=== PATIENT | male | born 1940 | race African-American/Black ===

== ENCOUNTER 2021-01-19 08:46 | Emergency (ER) | payer MEDICARE, OTHER, SELFPAY ==
[2021-01-19] VITALS (7 sets, daily range): BP systolic 138–185; BP diastolic 71–88; PULSE 73–116; RESP 14–28; TEMP 36.6; O2SAT 94–98; BMI 31.9
--- NOTE | 2021-01-19 09:04 | DI.RAD.S_ITS ---
PROCEDURE: XR CHEST 2V INDICATIONS: shortness of breath TECHNIQUE: 2 views of the chest were acquired. COMPARISON: None. FINDINGS: Surgical changes and devices: None. Lungs and pleura: Lungs are mildly edematous. Slight subpulmonic pleural effusions and no pneumothorax. Mediastinum: Mediastinal contours are normal. Heart size is at the upper limits of normal. Bones and chest wall: No suspicious bony abnormalities. Soft tissues appear unremarkable. IMPRESSION: Mild pulmonary edema pattern, slight pleural effusions beneath the lungs bilaterally. Dictated by: Jm Monroy M.D. on 01/19/2021 at 10:05 Approved by: Jm Monroy M.D. on 01/19/2021 at 10:06
--- NOTE | 2021-01-19 09:16 | ED.SOB ---
HPI - SOB/Dyspnea General Chief Complaint: Shortness of Breath/Dyspnea Stated Complaint: asthma is wearing him down Time Seen by Provider: 01/19/21 09:00 History of Present Illness HPI Narrative: Patient is a 80-year-old male with history of asthma presenting with increasing shortness of breath. Weeks ago had extreme hot weather he said it started then but has progressively gotten worse. He has been taking his Symbicort and albuterol but does not seem to be helping. He has a nonproductive cough and feels like his chest is tight. He does not have severe chest pain. He has no fever or chills. He denies any orthopnea or lower extremity edema. Related Data Home Medications Medication Instructions Recorded Confirmed [COD LIVER OIL] PO QDAY #0 07/03/10 albuterol sulfate 90 mcg/actuation 2 puff INH QIDP PRN #0 07/03/10 aerosol inhaler (Ventolin HFA) finasteride 5 mg tablet 5 mg PO QDAY #0 07/03/10 terazosin 5 mg capsule 5 mg PO BID #0 07/03/10 [GLUCOSAMINE/CHONTROI] PO QDAY #0 09/09/17 [TUSSIN DM] #0 09/09/17 [YOUTHEORY COLLAGEN] PO QDAY #0 09/09/17 albuterol sulfate 0.63 mg/3 mL INH PRN #0 09/09/17 solution for nebulization aspirin 81 mg tablet,delayed 81 mg PO QDAY #0 09/09/17 01/19/21 release budesonide-formoterol HFA 160 2 puff INH BID #0 09/09/17 mcg-4.5 mcg/actuation aerosol inhaler (Symbicort) doxycycline hyclate 100 mg tablet 100 mg PO #0 09/09/17 fluticasone propionate 50 2 spray INTRANASAL QDAY #0 09/09/17 mcg/actuation nasal spray,suspension (Flonase Allergy Relief) ibuprofen 800 mg tablet 800 mg PO TIDP PRN #0 09/09/17 ipratropium 0.5 mg-albuterol 3 mg 3 ml INH QID #0 09/09/17 (2.5 mg base)/3 mL nebulization soln ipratropium 20 mcg-albuterol 100 1 puff INH QID #0 09/09/17 mcg/actuation mist for inhalation (Combivent Respimat) montelukast 10 mg tablet 10 mg PO QDAY #0 09/09/17 omeprazole 20 mg tablet,delayed 20 mg PO QDAY #0 09/09/17 release prednisone 20 mg tablet 20 mg PO QDAY #0 09/09/17 Previous Rx's Medication Instructions Recorded albuterol sulfate 0.63 mg/3 mL 0.63 mg INHALATION QID PRN #75 ml 01/19/21 solution for nebulization albuterol sulfate 90 mcg/actuation 2 puff INHALATION Q4-6H PRN #8.5 01/19/21 aerosol inhaler gram prednisone 10 mg tablet 10 mg PO DAILY #30 tab 01/19/21 Allergies Allergy/AdvReac Type Severity Reaction Status Date / Time Penicillins [PENICILLINS] Allergy Unknown Verified 01/19/21 09:22 Sulfa (Sulfonamide Allergy Unknown Verified 01/19/21 09:22 Antibiotics) [SULFA (SULFONAMIDE ANTIBIOTICS)] Review of Systems Review of Systems Narrative: GENERAL: Denies chills, fatigue, malaise, fever, sweats, travel HEENT: Denies sinus pain, ear pain, sore throat, difficulty swallowing, neck pain RESPIRATORY: See HPI CARDIOVASCULAR: Denies chest pain, palpitations, orthopnea, edema GASTROINTESTINAL: Denies nausea, vomiting, abdominal pain, diarrhea, constipation, melena. : Denies dysuria, frequency, incontinence, hematuria, urinary retention, flank pain. MUSCULOSKELETAL: Denies weakness, joint pain, or bony pain SKIN: No rash, no erythema, no pruritus NEUROLOGIC: Denies weakness, dizziness, headache, numbness, change in speech, confusion PSYCHIATRIC: No concerning psychosocial issues. 12 point review of systems is negative except for those stated above and HPI Patient History Social History Smoking Status: Former smoker Exam Initial Vital Signs Initial Vital Signs: Vital Signs Temperature 97.9 F 01/19/21 09:00 Pulse Rate 73 01/19/21 09:00 Respiratory Rate 24 01/19/21 09:00 Blood Pressure 185/88 H 01/19/21 09:00 Pulse Oximetry 94 01/19/21 09:00 GENERAL: Well-appearing alert 80-year-old male HEENT: Head atraumatic,EOMI, pupils reactive, face symmetric, no JVD CARDIOVASCULAR: Regular rate and rhythm without murmurs, rubs or gallops. RESPIRATORY: Wheezing bilaterally no respiratory distress speaks in full sentences ABDOMEN: Soft, nontender. Normoactive bowel sounds all 4 quadrants. No guarding or rebound. EXTREMITIES: Normal range of motion, no clubbing or edema. Neurovascularly intact NEUROLOGICAL: Alert and oriented x4.Normal gait and speech. Cranial nerves II through XII grossly intact. SKIN: Warm, dry, no laceration, no petechiae, no rashes or lesions. Course Orders Ordered: ED Orders 01/19/21 09:00 COVID19 -Nasal swab/Pre-Proc Stat 01/19/21 09:04 XR chest 2V Stat EKG-12 Lead Stat Measure peak expiratory flow ONCE RT Consult Eval and Treat Now 01/19/21 09:20 Complete Blood Count AUTO DIFF Stat Comprehensive Metabolic Panel Stat Lactate (Lactic Acid) Stat NT-proBNP (BNP-Adult 18+) Stat Troponin & CK Cardiac Panel Stat Discontinued Medications Albuterol/Ipratropium (Albuterol/Ipratropium 3 Ml Ampul) 3 ml INH NOW ONE Stop: 01/19/21 09:17 Last Admin: 01/19/21 09:44 Dose: 3 ml Documented by: [email or web address] Albuterol/Ipratropium (Albuterol/Ipratropium 3 Ml Ampul) 6 ml INH NOW ONE Stop: 01/19/21 09:57 Last Admin: 01/19/21 10:00 Dose: 6 ml Documented by: [email or web address] Methylprednisolone (Methylprednisolone 125 Mg/2 Ml Vial) 125 mg IV NOW ONE Stop: 01/19/21 09:17 Last Admin: 01/19/21 09:29 Dose: 125 mg Documented by: [email or web address] Vital Signs Vital signs: Vital Signs - 8 hr 01/19/21 09:00 01/19/21 09:54 01/19/21 10:01 Temperature 97.9 F Pulse Rate 73 76 80 Respiratory Rate 24 14 15 Blood Pressure 185/88 H Pulse Oximetry 94 98 95 01/19/21 10:23 01/19/21 10:30 01/19/21 11:04 Temperature Pulse Rate 94 H 116 H 98 H Respiratory Rate 15 28 H Blood Pressure 170/71 H 138/71 Pulse Oximetry 98 95 97 01/19/21 11:14 Temperature Pulse Rate 98 H Respiratory Rate 20 Blood Pressure 138/71 Pulse Oximetry 96 MDM - SOB/Dyspnea Lab Data Result diagrams: 01/19/21 09:20 01/19/21 09:20 Labs: Lab Results 01/19/21 01/19/21 01/19/21 Range/Units 09:00 09:20 09:20 WBC 7.0 (4.5-11.0) X10^3/uL RBC 4.50 (4.5-5.9) X10^6/uL Hgb 12.7 L (13.5-17.5) g/dL Hct 38.8 L (41-53) % MCV 86.4 (80-100) fL MCH 28.2 (26-34) PG MCHC 32.7 (30-36) % RDW 16.7 H (11.6-14.8) % Plt Count 244 (150-400) X10^3/uL Neut % (Auto) 69.6 (50-75) % Lymph % (Auto) 18.4 L (25-40) % [place] % (Auto) 10.0 (3-14) % Eos % (Auto) 1.4 L (2-4) % Baso % (Auto) 0.6 (0-2) % Neut # (Auto) 4900 (0082-7029) /uL Lymph # (Auto) 1300 (5998-0288) /uL [place] # (Auto) 700 (0-900) /uL Eos # (Auto) 100 (0-450) /uL Baso # (Auto) 0 (0-100) /uL Sodium 140 (137-145) mmol/L Potassium 3.6 (3.4-5.1) mmol/L Chloride 107 (98-107) mmol/L Carbon Dioxide 30 (22-32) mmol/L BUN 10 (9-20) mg/dL Creatinine 0.61 L (0.66-1.25) mg/dL Estimated GFR > 60.0 (>60) mL/min BUN/Creatinine Ratio 16.4 (6-22) Glucose 90 (80-110) mg/dL Lactate (0.7-2.1) mmol/L Calcium 8.6 (8.4-10.2) mg/dL Total Bilirubin 0.4 (0.2-1.3) mg/dL AST 32 (17-59) IU/L ALT 21 (<50) IU/L Alkaline Phosphatase 63 (38-126) U/L Total Creatine Kinase (55-170) U/L CK-MB (CK-2) (<2.37) ng/mL CK-MB (CK-2) Rel Index (1.5-5.0) % Troponin I (0.01-0.034) ng/mL NT-Pro-B Natriuret Pep (<450) pg/mL Total Protein 6.3 (6.3-8.2) g/dL Albumin 3.5 (3.5-5.0) g/dL Globulin 2.8 (1.7-4.1) g/dL Albumin/Globulin Ratio 1.3 (1.0-2.8) SARS-CoV-2 (PCR) Negative (Negative) 01/19/21 01/19/21 Range/Units 09:20 09:20 WBC (4.5-11.0) X10^3/uL RBC (4.5-5.9) X10^6/uL Hgb (13.5-17.5) g/dL Hct (41-53) % MCV (80-100) fL MCH (26-34) PG MCHC (30-36) % RDW (11.6-14.8) % Plt Count (150-400) X10^3/uL Neut % (Auto) (50-75) % Lymph % (Auto) (25-40) % [place] % (Auto) (3-14) % Eos % (Auto) (2-4) % Baso % (Auto) (0-2) % Neut # (Auto) (2254-8499) /uL Lymph # (Auto) (3203-1206) /uL [place] # (Auto) (0-900) /uL Eos # (Auto) (0-450) /uL Baso # (Auto) (0-100) /uL Sodium (137-145) mmol/L Potassium (3.4-5.1) mmol/L Chloride (98-107) mmol/L Carbon Dioxide (22-32) mmol/L BUN (9-20) mg/dL Creatinine (0.66-1.25) mg/dL Estimated GFR (>60) mL/min BUN/Creatinine Ratio (6-22) Glucose (80-110) mg/dL Lactate 1.2 (0.7-2.1) mmol/L Calcium (8.4-10.2) mg/dL Total Bilirubin (0.2-1.3) mg/dL AST (17-59) IU/L ALT (<50) IU/L Alkaline Phosphatase (38-126) U/L Total Creatine Kinase 388 H (55-170) U/L CK-MB (CK-2) 4.38 H (<2.37) ng/mL CK-MB (CK-2) Rel Index 1.1 L (1.5-5.0) % Troponin I < 0.012 (0.01-0.034) ng/mL NT-Pro-B Natriuret Pep 148 (<450) pg/mL Total Protein (6.3-8.2) g/dL Albumin (3.5-5.0) g/dL Globulin (1.7-4.1) g/dL Albumin/Globulin Ratio (1.0-2.8) SARS-CoV-2 (PCR) (Negative) Imaging Data Chest x-ray: Radiologist's Impression: PROCEDURE: XR CHEST 2V INDICATIONS: shortness of breath TECHNIQUE: 2 views of the chest were acquired. COMPARISON: None. FINDINGS: Surgical changes and devices: None. Lungs and pleura: Lungs are mildly edematous. Slight subpulmonic pleural effusions and no pneumothorax. Mediastinum: Mediastinal contours are normal. Heart size is at the upper limits of normal. Bones and chest wall: No suspicious bony abnormalities. Soft tissues appear unremarkable. IMPRESSION: Mild pulmonary edema pattern, slight pleural effusions beneath the lungs bilaterally. Dictated by: Jm Monroy M.D. on 01/19/2021 at 10:05 ECG Data Interpretation: Normal sinus rhythm rate 73 p.r. interval 142 QRS [address] changes or T-wave inversions with right bundle-branch block, no priors to compare MDM Narrative Medical decision making narrative: Patient is overall feeling and breathing much better after DuoNebs. He is given Solu-Medrol as well. At this time will send him home with prednisone taper no leukocytosis no history of COPD no evidence of pneumonia on x-ray although mild pulmonary edema with a normal BNP. At this time I would not start antibiotics. Discharge Plan Departure Patient Disposition: Home Clinical Impression: Asthma exacerbation Qualifiers: Asthma severity: moderate Asthma persistence: persistent Qualified Code(s): J45.41 - Moderate persistent asthma with (acute) exacerbation Instructions: Asthma -- Adult Activity Restrictions/Additional Instructions: *You have been diagnosed with asthma exacerbation *What to do: At this time no need for antibiotics. I hope that you begin to feel better soon *Continue to take medications as directed Prednisone take as directed tapered over 12 days Albuterol either nebulized or inhaler with spacer every 4 hours if needed for cough and shortness of breath *Follow up with your primary care provider in 2-3 days *Return to ER if you should have worsening cough, shortness of breath, chest pain or any new, worsening or concerning symptoms Prescriptions: New albuterol sulfate 0.63 mg/3 mL solution for nebulization 0.63 mg INHALATION QID PRN (Reason: shortness of breath or wheezing) Qty: 75 RF: 0 prednisone 10 mg tablet 10 mg PO DAILY Qty: 30 RF: 0 albuterol sulfate 90 mcg/actuation HFA aerosol inhaler 2 puff INHALATION Q4-6H PRN (Reason: shortness of breath or wheezing) Qty: 8.5 RF: 0 No Action albuterol sulfate [Ventolin HFA] 90 MCG/PUFF HFA aerosol inhaler 2 puff INH QIDP PRNQty: 0 RF: 0 finasteride 5 MG tablet 5 mg PO QDAY Qty: 0 RF: 0 [COD LIVER OIL] PO QDAY Qty: 0 RF: 0 terazosin 5 MG capsule 5 mg PO BID Qty: 0 RF: 0 aspirin 81 MG tablet,delayed release (DR/EC) 81 mg PO QDAY Qty: 0 RF: 0 montelukast 10 MG tablet 10 mg PO QDAY Qty: 0 RF: 0 ipratropium-albuterol [Combivent Respimat] 4 GM mist 1 puff INH QID Qty: 0 RF: 0 budesonide-formoterol [Symbicort] 160 MCG/4.5 MCG HFA aerosol inhaler 2 puff INH BID Qty: 0 RF: 0 [YOUTHEORY COLLAGEN] PO QDAY Qty: 0 RF: 0 albuterol sulfate 0.63 mg/3 mL solution for nebulization INH PRNQty: 0 RF: 0 ipratropium-albuterol 3 ML solution for nebulization 3 ml INH QID Qty: 0 RF: 0 prednisone 20 MG tablet 20 mg PO QDAY Qty: 0 RF: 0 doxycycline hyclate 100 MG tablet 100 mg PO Qty: 0 RF: 0 [TUSSIN DM] Qty: 0 RF: 0 fluticasone propionate [Flonase Allergy Relief] 9.9 ML spray,suspension 2 spray Intranasal QDAY Qty: 0 RF: 0 [GLUCOSAMINE/CHONTROI] PO QDAY Qty: 0 RF: 0 ibuprofen 800 MG tablet 800 mg PO TIDP PRNQty: 0 RF: 0 omeprazole 20 MG tablet,delayed release (DR/EC) 20 mg PO QDAY Qty: 0 RF: 0 Referrals: Smith Summers ARNP [Primary Care Provider] -
[2021-01-19 09:29] LABS: Add Manual Diff / Slide Review NO; Basophils Absolute Auto 0 /uL (0-100); Basophils Percent Auto 0.6 % (0-2); Eosinophils Absolute Auto 100 /uL (0-450); Eosinophils Percent Auto 1.4 % (2-4); Hematocrit 38.8 % (41-53); Hemoglobin 12.7 g/dL (13.5-17.5); Lymphocytes Absolute Auto 1300 /uL (1100-4500); Lymphocytes Percent Auto 18.4 % (25-40); Mean Corpuscular HGB Conc 32.7 % (30-36); Mean Corpuscular Hemoglobin 28.2 PG (26-34); Mean Corpuscular Volume 86.4 fL (80-100); Monocytes Absolute Auto 700 /uL (0-900); Neutrophils Absolute Auto 4900 /uL (1500-7000); Neutrophils Percent Auto 69.6 % (50-75); Platelet Count 244 X10^3/uL (150-400); Red Cell Distribution Width 16.7 % (11.6-14.8)
[2021-01-19] MEDS: methylPREDNISolone 125 MG/2 ML VIAL IV (09:29)
[2021-01-19 09:31] LABS: COVID19 -Nasal RAPID Negative (Negative)
[2021-01-19 09:42] LABS: Alanine Aminotransferase 21 IU/L (<50); Albumin 3.5 g/dL (3.5-5.0); Albumin Globulin Ratio 1.3 (1.0-2.8); Alkaline Phosphatase 63 U/L (38-126); Aspartate Aminotransferase 32 IU/L (17-59); BUN Creatinine Ratio 16.4 (6-22); Bilirubin Total 0.4 mg/dL (0.2-1.3); Blood Urea Nitrogen 10 mg/dL (9-20); Calcium 8.6 mg/dL (8.4-10.2); Carbon Dioxide 30 mmol/L (22-32); Chloride 107 mmol/L (98-107); Creatine Kinase 388 U/L (55-170); Estimated Glomerular Filt Rate > 60.0 mL/min (>60); Globulin 2.8 g/dL (1.7-4.1); Glucose 90 mg/dL (80-110); HEMOLYSIS < 15 (0-50); Potassium 3.6 mmol/L (3.4-5.1); Sodium 140 mmol/L (137-145); Total Protein 6.3 g/dL (6.3-8.2)
[2021-01-19 09:43] LABS: Lactate (Lactic Acid) 1.2 mmol/L (0.7-2.1)
[2021-01-19] MEDS: ALBUTEROL/IPRATROPIUM 3 ML AMPUL INH (09:44)
[2021-01-19 09:54] LABS: NT-proBNP (BNP-Adult 18+) 148 pg/mL (<450); Troponin I < 0.012 ng/mL (0.01-0.034)
[2021-01-19 09:58] LABS: CKMB % Relative Index 1.1 % (1.5-5.0); Creatine Kinase MB 4.38 ng/mL (<2.37)
[2021-01-19] MEDS: ALBUTEROL/IPRATROPIUM 3 ML AMPUL 6 ML INH (10:00)
== END 2021-01-19 11:16 | disposition home or self-care (01) ==
PROVIDERS: Emergency Provider Emergency Medicine; PCP Nurse Practitioner Family
DX: J45.41 Moderate persistent asthma with (acute) exacerbation (principal); R05 Cough; R07.9 Chest pain, unspecified; Z20.822 Contact with and (suspected) exposure to COVID-19
CPT/HCPCS: 36415; 71046; 80053; 82550; 82553; 83605; 83880; 84484; 85025; 87635; 93005; 94640; 96374; 99284; C9803; J2930

== ENCOUNTER → 2023-05-13 10:07 | Outpatient (CLI) | payer MEDICARE, OTHER, SELFPAY ==
[2023-05-13 10:40] LABS: Add Manual Diff / Slide Review NO; Basophils Absolute Auto 0 /uL (0-100); Basophils Percent Auto 0.6 % (0-2); Eosinophils Absolute Auto 100 /uL (0-450); Eosinophils Percent Auto 1.5 % (2-4); Hematocrit 37.3 % (41-53); Hemoglobin 12.2 g/dL (13.5-17.5); Lymphocytes Absolute Auto 1000 /uL (1100-4500); Lymphocytes Percent Auto 13.9 % (25-40); Mean Corpuscular HGB Conc 32.6 % (30-36); Mean Corpuscular Hemoglobin 27.4 PG (26-34); Mean Corpuscular Volume 83.9 fL (80-100); Monocytes Absolute Auto 400 /uL (0-900); Monocytes Percent Auto 6.3 % (3-14); Neutrophils Absolute Auto 5300 /uL (1500-7000); Neutrophils Percent Auto 77.7 % (50-75); Platelet Count 270 X10^3/uL (150-400); Red Blood Cell Count 4.45 X10^6/uL (4.5-5.9); Red Cell Distribution Width 17.6 % (11.6-14.8); White Blood Cell Count 6.8 X10^3/uL (4.5-11.0)
[2023-05-13 11:23] LABS: BUN Creatinine Ratio 28.2 (6-22); Blood Urea Nitrogen 20 mg/dL (9-20); Calcium 9.2 mg/dL (8.4-10.2); Carbon Dioxide 29 mmol/L (22-32); Chloride 105 mmol/L (98-107); Cholesterol 155 mg/dL (140-199); Estimated Glomerular Filt Rate > 60 mL/min (>60); Glucose 92 mg/dL (80-110); HDL Cholesterol 60 mg/dL (40-60); HEMOLYSIS < 15 (0-50); LDL Cholesterol Calculated 74 mg/dL (<100); Sodium 139 mmol/L (137-145); Triglycerides 106 mg/dL (35-150)
[2023-05-13 11:50] LABS: TSH w/ Reflex to FT4 0.65 uIU/mL (0.47-4.68)
== END ==
PROVIDERS: PCP Nurse Practitioner Family; Referring Provider Internal Medicine Cardiovascular Disease; Visit Provider Internal Medicine Cardiovascular Disease
DX: I10 Essential (primary) hypertension (principal); I47.10 Supraventricular tachycardia, unspecified
CPT/HCPCS: 36415; 80048; 80061; 84443; 85025

== ENCOUNTER 2025-01-02 21:33 | Emergency (ER) | payer MEDICARE, OTHER, SELFPAY ==
[2025-01-02 21:35] VITALS: BP 165/79; PULSE 82; RESP 16; TEMP 37.2; O2SAT 97; BMI 31.1
--- NOTE | 2025-01-03 03:05 | ED.GENADULT ---
HPI - General Adult General Chief complaint: Nasal Problem Stated complaint: NoseBleed Time Seen by Provider: 01/03/25 02:52 Source: patient and family Mode of arrival: Ambulatory History of Present Illness HPI narrative: 84-year-old gentleman with a history of hypertension, coronary artery disease, anticoagulated and reflux who comes in with recurrent nosebleed. Started around 6:00 this evening lasted for approximately 30 minutes and resolved. Recurred later this evening and he was unable to get it stopped and comes in for further evaluation. States he has been taking his blood pressure medications. He does not typically have nosebleeds he has not been sick recently he does not describe recent trauma to his nose. He is otherwise feeling well Related Data Home Medications ?Medication ?Instructions ?Recorded ?Confirmed [COD LIVER OIL] PO QDAY ##0 07/03/10 albuterol sulfate 90 mcg/actuation 2 puff INH QIDP PRN ##0 07/03/10 aerosol inhaler (Ventolin HFA) finasteride 5 mg tablet 5 mg PO QDAY ##0 07/03/10 terazosin 5 mg capsule 5 mg PO BID ##0 07/03/10 [GLUCOSAMINE/CHONTROI] PO QDAY ##0 09/09/17 [TUSSIN DM] ##0 09/09/17 [YOUTHEORY COLLAGEN] PO QDAY ##0 09/09/17 albuterol sulfate 0.63 mg/3 mL INH PRN ##0 09/09/17 solution for nebulization aspirin 81 mg tablet,delayed 81 mg PO QDAY ##0 09/09/17 01/19/21 release budesonide-formoterol HFA 160 2 puff INH BID ##0 09/09/17 mcg-4.5 mcg/actuation aerosol inhaler (Symbicort) doxycycline hyclate 100 mg tablet 100 mg PO ##0 09/09/17 fluticasone propionate 50 2 spray intranasal QDAY ##0 09/09/17 mcg/actuation nasal spray,suspension (Flonase Allergy Relief) ibuprofen 800 mg tablet 800 mg PO TIDP PRN ##0 09/09/17 ipratropium 0.5 mg-albuterol 3 mg 3 ml INH QID ##0 09/09/17 (2.5 mg base)/3 mL nebulization soln ipratropium 20 mcg-albuterol 100 1 puff INH QID ##0 09/09/17 mcg/actuation mist for inhalation (Combivent Respimat) montelukast 10 mg tablet 10 mg PO QDAY ##0 09/09/17 omeprazole 20 mg tablet,delayed 20 mg PO QDAY ##0 09/09/17 release prednisone 20 mg tablet 20 mg PO QDAY ##0 09/09/17 Previous Rx's ?Medication ?Instructions ?Recorded albuterol sulfate 0.63 mg/3 mL 0.63 mg (3 mL) inhalation QID PRN 01/19/21 solution for nebulization shortness of breath or wheezing #75 mL albuterol sulfate 90 mcg/actuation 2 puff inhalation Q4-6H PRN 01/19/21 aerosol inhaler shortness of breath or wheezing #8.5 grams prednisone 10 mg tablet 10 mg PO DAILY #30 tabs 01/19/21 Allergies Allergy/AdvReac Type Severity Reaction Status Date / Time Penicillins (PENICILLINS) Allergy Unknown Verified 01/02/25 21:37 Sulfa (Sulfonamide Allergy Unknown Verified 01/02/25 21:37 Antibiotics) (SULFA (SULFONAMIDE ANTIBIOTICS)) Review of Systems Review of Systems Narrative: Pertinent positive and negative findings as per HPI Patient History Medical History (Updated 01/03/25 @ 04:03 by Rima Mcintosh MD) Anticoagulated Coronary artery disease Hypertension Social History Smoking Status: Former smoker Smoking Status: Former smoker alcohol intake frequency: holidays/special occasions only Exam Initial Vital Signs Initial Vital Signs: Vital Signs Temperature 98.9 F 01/02/25 21:35 Pulse Rate 82 01/02/25 21:35 Respiratory Rate 16 01/02/25 21:35 Blood Pressure 165/79 H 01/02/25 21:35 Pulse Oximetry 97 01/02/25 21:35 Oxygen Delivery Method Room Air 01/02/25 21:35 General: Nose clamp in place, in no acute distress. HEENT: Moist mucous membranes, normal sclera with reactive pupils, epistaxis has stopped, he is able to gently blow out a fairly large clot. No obvious bleeding site is appreciated Respiratory: full and symmetrical air movement Cardiac: Regular rate and rhythm no murmurs no bruits Psych: Cooperative, appropriate insight and affect Course Vital Signs Vital signs: Vital Signs - 8 hr 01/02/25 21:35 Temperature 98.9 F Pulse Rate 82 Respiratory Rate 16 Blood Pressure 165/79 H Pulse Oximetry 97 Oxygen Delivery Method Room Air Discharge Plan Departure Patient Disposition: Home Clinical Impression: Epistaxis, Anticoagulated Hypertension Qualifiers: Hypertension type: primary hypertension Qualified Code(s): I10 - Essential (primary) hypertension Instructions: DI for Nosebleed Activity Restrictions/Additional Instructions: Thank you for coming in today Your nosebleed has finally stopped. You were able to get that large clot out and I think that is helpful. We used Afrin in your nose, this causes constriction to the little bitty blood vessels so that you will have less bleeding Your blood pressure was slightly elevated, I had you take your morning blood pressure medications out of your pill pack. Please continue with your regular scheduled dosing throughout the remainder of today. I would recommend using either antibiotic ointment or Vaseline to gently apply inside your knows to keep the inside of the nose moist and allow the small spot that is bleeding to heal. If you have more bleeding, we have given you the Afrin to use at home, use 2 squirts on the side that is bleeding. Use the nose clamp until the bleeding has stopped. I would suggest that you keep track of your blood pressure over the course of the next couple of days. If your blood pressure is consistently elevated you do need to follow up with your regular doctor, this may be contributing to your nosebleeds If you find that you are getting worse or develop any new symptoms, please feel free to return to the emergency department for further evaluation. Prescriptions: No Action albuterol sulfate [Ventolin HFA] 90 MCG/PUFF HFA aerosol inhaler 2 puff INH QIDP PRNQty: 0 finasteride 5 MG tablet 5 mg PO QDAY Qty: 0 [COD LIVER OIL] PO QDAY Qty: 0 terazosin 5 MG capsule 5 mg PO BID Qty: 0 aspirin 81 MG tablet,delayed release (DR/EC) 81 mg PO QDAY Qty: 0 montelukast 10 MG tablet 10 mg PO QDAY Qty: 0 ipratropium-albuterol [Combivent Respimat] 4 GM mist 1 puff INH QID Qty: 0 budesonide-formoterol [Symbicort] 160 MCG/4.5 MCG HFA aerosol inhaler 2 puff INH BID Qty: 0 [YOUTHEORY COLLAGEN] PO QDAY Qty: 0 albuterol sulfate 0.63 mg/3 mL solution for nebulization INH PRNQty: 0 ipratropium-albuterol 3 ML solution for nebulization 3 ml INH QID Qty: 0 prednisone 20 MG tablet 20 mg PO QDAY Qty: 0 doxycycline hyclate 100 MG tablet 100 mg PO Qty: 0 [TUSSIN DM] Qty: 0 fluticasone propionate [Flonase Allergy Relief] 9.9 ML spray,suspension 2 spray Intranasal QDAY Qty: 0 [GLUCOSAMINE/CHONTROI] PO QDAY Qty: 0 ibuprofen 800 MG tablet 800 mg PO TIDP PRNQty: 0 omeprazole 20 MG tablet,delayed release (DR/EC) 20 mg PO QDAY Qty: 0 albuterol sulfate 0.63 mg/3 mL solution for nebulization 0.63 mg INHALATION QID PRN (Reason: shortness of breath or wheezing) Qty: 75 0RF prednisone 10 mg tablet 10 mg PO DAILY Qty: 30 0RF Rx Instructions: day 1-3: 40 mg once a day day 4-6: 30 mg once a day day 7-9: 20 mg once a day day 10-12: 10 mg once a day albuterol sulfate 90 mcg/actuation HFA aerosol inhaler 2 puff INHALATION Q4-6H PRN (Reason: shortness of breath or wheezing) Qty: 8.5 0RF Referrals: Smith Summers ARNP [Primary Care Provider, Medical] Stand Alone Forms: Patient Portal/API
[2025-01-03 03:16] VITALS: BP 187/86
[2025-01-03] MEDS: OXYMETAZOLINE NASAL SPRAY 30 ML 2 SPRAYS NASAL (03:24)
== END 2025-01-03 04:12 | disposition home or self-care (01) ==
PROVIDERS: Emergency Provider Emergency Medicine; PCP Nurse Practitioner Family
DX: R04.0 Epistaxis (principal); Z79.01 Long term (current) use of anticoagulants
CPT/HCPCS: 99282

== ENCOUNTER 2025-03-23 14:32 | Emergency (ER) | payer OTHER, SELFPAY ==
[2025-03-23 14:35] VITALS: BP 159/78; PULSE 73; RESP 20; TEMP 37; O2SAT 97; BMI 31.1
--- NOTE | 2025-03-23 15:56 | ED.EPISTAXIS ---
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 No inciting event or trauma to the ear that caused this. Other than what is stated 14 point review of system is negative. Related Data Home Medications ?Medication ?Instructions ?Recorded ?Confirmed [COD LIVER OIL] PO QDAY ##0 07/03/10 albuterol sulfate 90 mcg/actuation 2 puff INH QIDP PRN ##0 07/03/10 aerosol inhaler (Ventolin HFA) finasteride 5 mg tablet 5 mg PO QDAY ##0 07/03/10 terazosin 5 mg capsule 5 mg PO BID ##0 07/03/10 [GLUCOSAMINE/CHONTROI] PO QDAY ##0 09/09/17 [TUSSIN DM] ##0 09/09/17 [YOUTHEORY COLLAGEN] PO QDAY ##0 09/09/17 albuterol sulfate 0.63 mg/3 mL INH PRN ##0 09/09/17 solution for nebulization aspirin 81 mg tablet,delayed 81 mg PO QDAY ##0 09/09/17 01/19/21 release budesonide-formoterol HFA 160 2 puff INH BID ##0 09/09/17 mcg-4.5 mcg/actuation aerosol inhaler (Symbicort) doxycycline hyclate 100 mg tablet 100 mg PO ##0 09/09/17 fluticasone propionate 50 2 spray intranasal QDAY ##0 09/09/17 mcg/actuation nasal spray,suspension (Flonase Allergy Relief) ibuprofen 800 mg tablet 800 mg PO TIDP PRN ##0 09/09/17 ipratropium 0.5 mg-albuterol 3 mg 3 ml INH QID ##0 09/09/17 (2.5 mg base)/3 mL nebulization soln ipratropium 20 mcg-albuterol 100 1 puff INH QID ##0 09/09/17 mcg/actuation mist for inhalation (Combivent Respimat) montelukast 10 mg tablet 10 mg PO QDAY ##0 09/09/17 omeprazole 20 mg tablet,delayed 20 mg PO QDAY ##0 09/09/17 release prednisone 20 mg tablet 20 mg PO QDAY ##0 09/09/17 Previous Rx's ?Medication ?Instructions ?Recorded albuterol sulfate 0.63 mg/3 mL 0.63 mg (3 mL) inhalation QID PRN 01/19/21 solution for nebulization shortness of breath or wheezing #75 mL albuterol sulfate 90 mcg/actuation 2 puff inhalation Q4-6H PRN 01/19/21 aerosol inhaler shortness of breath or wheezing #8.5 grams prednisone 10 mg tablet 10 mg PO DAILY #30 tabs 01/19/21 amoxicillin 875 mg-potassium 1 tab PO BID #14 tabs 03/23/25 clavulanate 125 mg tablet Allergies Allergy/AdvReac Type Severity Reaction Status Date / Time Penicillins (PENICILLINS) Allergy Unknown Verified 03/23/25 14:36 Sulfa (Sulfonamide Allergy Unknown Verified 03/23/25 14:36 Antibiotics) (SULFA (SULFONAMIDE ANTIBIOTICS)) Review of Systems Review of Systems ROS Unobtainable: All systems reviewed & are unremarkable except as noted in HPI and below Patient History Medical History (Updated 03/23/25 @ 17:43 by Sammy Beard DO) Anticoagulated Coronary artery disease Hypertension alcohol intake frequency: holidays/special occasions only Exam Narrative Exam Narrative: GENERAL: [85] year old patient appears stated age. Well-developed patient, in mild distress. HEAD: Atraumatic. Normocephalic. EYES: Pupils equal round and reactive. Extraocular motions intact. No scleral icterus. No injection or drainage. ENT: Nose without bleeding, purulent drainage. Throat without erythema, tonsillar hypertrophy or exudate. Airway patent. NECK: Trachea midline. Non tender CARDIOVASCULAR: Regular rate and rhythm without murmurs, gallops, or rubs. RESPIRATORY: Clear to auscultation. Breath sounds equal bilaterally. No wheezes, rales, or rhonchi. GASTROINTESTINAL: Abdomen soft, non-tender, nondistended. EXTREMITIES: No edema or joint tenderness. BACK: Nontender without deformity or crepitance. No flank tenderness. NEURO: AOx3. SKIN: No rash or erythema of visible areas Initial Vital Signs Initial Vital Signs: Vital Signs Temperature 98.6 F 03/23/25 14:35 Pulse Rate 73 03/23/25 14:35 Respiratory Rate 20 03/23/25 14:35 Blood Pressure 159/78 H 03/23/25 14:35 Pulse Oximetry 97 03/23/25 14:35 Oxygen Delivery Method Room Air 03/23/25 14:35 [place] [facility] [place] Procedure: Rapid rhino insertion R nare 5.5cm Side (if applicable): right Location: R nostril Time out performed: Yes Technique/Description of procedure performed: Insertion R rapid rhino Patient tolerated procedure: Well Complications: none Course Orders Ordered: Discontinued Medications Amoxicillin/Clavulanate Potassium (Amoxicillin/Clav 875/125 Mg) 1 tab PO NOW ONE Stop: 03/23/25 17:40 Last Admin: 03/23/25 17:56 Dose: 1 tab Documented By: Tranexamic Acid (Tranexamic Acid 1,000 Mg Vial) 2,000 mg INJ INTRA-OP ONE Stop: 03/23/25 15:57 Last Admin: 03/23/25 16:04 Dose: 2,000 mg Documented By: Vital Signs Vital signs: Vital Signs - 8 hr 03/23/25 14:35 03/23/25 18:02 Temperature 98.6 F Pulse Rate 73 66 Respiratory Rate 20 19 Blood Pressure 159/78 H 145/89 H Pulse Oximetry 97 98 Oxygen Delivery Method Room Air Room Air MDM - Epistaxis MDM Narrative Medical decision making narrative: Vital signs nurse triage note medication list previous ER visits in all imaging studies reviewed. Patient had tranxsemaic acid and rapid rhino 5.5cm placed. Augmentin given and to follow up with pcp on tuesday for recheck. Anterior versus posterior bleed. Discharge Plan Departure Patient Disposition: Home Clinical Impression: Epistaxis Instructions: DI for Nosebleed Activity Restrictions/Additional Instructions: Return with new or worsening symptoms. Take medicines as directed. Follow up PCP on Tuesday. Prescriptions: New amoxicillin-pot clavulanate 875-125 mg tablet 1 tab PO BID Qty: 14 0RF No Action albuterol sulfate [Ventolin HFA] 90 MCG/PUFF HFA aerosol inhaler 2 puff INH QIDP PRNQty: 0 finasteride 5 MG tablet 5 mg PO QDAY Qty: 0 [COD LIVER OIL] PO QDAY Qty: 0 terazosin 5 MG capsule 5 mg PO BID Qty: 0 aspirin 81 MG tablet,delayed release (DR/EC) 81 mg PO QDAY Qty: 0 montelukast 10 MG tablet 10 mg PO QDAY Qty: 0 ipratropium-albuterol [Combivent Respimat] 4 GM mist 1 puff INH QID Qty: 0 budesonide-formoterol [Symbicort] 160 MCG/4.5 MCG HFA aerosol inhaler 2 puff INH BID Qty: 0 [YOUTHEORY COLLAGEN] PO QDAY Qty: 0 albuterol sulfate 0.63 mg/3 mL solution for nebulization INH PRNQty: 0 ipratropium-albuterol 3 ML solution for nebulization 3 ml INH QID Qty: 0 prednisone 20 MG tablet 20 mg PO QDAY Qty: 0 doxycycline hyclate 100 MG tablet 100 mg PO Qty: 0 [TUSSIN DM] Qty: 0 fluticasone propionate [Flonase Allergy Relief] 9.9 ML spray,suspension 2 spray Intranasal QDAY Qty: 0 [GLUCOSAMINE/CHONTROI] PO QDAY Qty: 0 ibuprofen 800 MG tablet 800 mg PO TIDP PRNQty: 0 omeprazole 20 MG tablet,delayed release (DR/EC) 20 mg PO QDAY Qty: 0 albuterol sulfate 0.63 mg/3 mL solution for nebulization 0.63 mg INHALATION QID PRN (Reason: shortness of breath or wheezing) Qty: 75 0RF prednisone 10 mg tablet 10 mg PO DAILY Qty: 30 0RF Rx Instructions: day 1-3: 40 mg once a day day 4-6: 30 mg once a day day 7-9: 20 mg once a day day 10-12: 10 mg once a day albuterol sulfate 90 mcg/actuation HFA aerosol inhaler 2 puff INHALATION Q4-6H PRN (Reason: shortness of breath or wheezing) Qty: 8.5 0RF Referrals: Smith Summers ARNP [Primary Care Provider, Medical] Stand Alone Forms: Patient Portal/API
[2025-03-23] MEDS: TRANEXAMIC ACID 1,000 MG VIAL 2000 MG INJ (16:04)
--- NOTE | 2025-03-23 16:06 | PC.NURSE ---
Pt has nose clamp in placed. No bleeding noted. Discussed plan of care, understands. Packing placed by Dr Beard.
[2025-03-23] MEDS: AMOXICILLIN/CLAV 875/125 MG 1 TAB PO (17:56)
[2025-03-23 18:02] VITALS: BP 145/89; PULSE 66; RESP 19; O2SAT 98
== END 2025-03-23 18:03 | disposition home or self-care (01) ==
PROVIDERS: Emergency Provider Family Medicine; PCP Nurse Practitioner Family
DX: R04.0 Epistaxis (principal); Z79.01 Long term (current) use of anticoagulants
CPT/HCPCS: 30905; 99283

== ENCOUNTER → 2025-04-02 13:18 | Outpatient (CLI) | payer OTHER, SELFPAY | LOC: RESP 13:18 | PROVIDERS: PCP Nurse Practitioner Family; Referring Provider Nurse Practitioner Family; Visit Provider Nurse Practitioner Family | DX: J44.9 Chronic obstructive pulmonary disease, unspecified (principal); Z87.891 Personal history of nicotine dependence; R05.9 Cough, unspecified; J98.8 Other specified respiratory disorders; R94.2 Abnormal results of pulmonary function studies | CPT/HCPCS: 94060; 94726; 94729 ==